=== PATIENT | female | born 1960 | race Caucasian/White ===

== ENCOUNTER 2018-07-05 19:46 | Emergency (ER) | payer BC ==
[2018-07-05 20:09] VITALS: BP 146/84
[2018-07-05] MEDS ORDERED: Tetan/Diph/Pertus SYR(Tdap)* 0.5 ML SYR(BOOSTRIX) use SYR IM ONE (20:09)
[2018-07-05] MEDS ORDERED: Cephalexin CAP* 500 MG PO ONE (20:10)
--- NOTE | 2018-07-05 20:10 | UC ---
Lower Extremity/Ankle HPI - HPI Summary HPI Summary: Patient accidentally stepped on a metal handle of a basket with her left foot. She describes the handle as a thin shiny piece of metal that caused a puncture wound to the bottom of her left foot. She gestures that it went in to a depth of approximately 1-2 cm. The handle did come out whole and she denies any foreign body sensation. She also denies any numbness tingling or weakness to the foot. This occurred just prior to arrival. Last tetanus shot is unknown. Patient washed the area after the incident. - History of Current Complaint Stated Complaint: L FOOT INJURY Time Seen by Provider: 07/05/18 20:01 Hx Obtained From: Patient Onset/Duration: Sudden Onset Aggravating Factor(s): Nothing Alleviating Factor(s): Nothing - Allergies/Home Medications Allergies/Adverse Reactions: Allergies Allergy/AdvReac Type Severity Reaction Status Date / Time MS Eggs or Egg-derived Allergy Hives Verified 05/23/16 16:56 Products [Eggs or Egg-derived Products] MS Penicillins [Penicillins] Allergy Hives Verified 05/23/16 16:56 Home Medications: Home Medications Pseudoephedrine TAB* [Sudafed TAB*] 30 mg PO Q6H PRN 07/05/18 [History Confirmed 07/05/18] PMH/Surg Hx/FS Hx/Imm Hx - Additional Past Medical History Additional PMH: allergies - Surgical History Surgical History: Yes Surgery Procedure, Year, and Place: 25# OVARIAN CYST REMOVED AT AGE 19. APPY. FALLOPIAN TUBE "CLEANED" - Family History Known Family History: Positive: Hypertension - Social History Occupation: Works From/At Home - [employer] Lives: With Family Alcohol Use: None Substance Use Type: None Smoking Status (MU): Never Smoked Tobacco - Immunization History Hx Tetanus, Diphtheria Vaccination: No Vaccination Up to Date: Yes Review of Systems Constitutional: Negative Skin: Other - PW L foot Eyes: Negative ENT: Negative Respiratory: Negative Cardiovascular: Negative Gastrointestinal: Negative Genitourinary: Negative Motor: Negative Neurovascular: Negative Musculoskeletal: Negative Neurological: Negative Psychological: Negative Is Patient Immunocompromised?: No All Other Systems Reviewed And Are Negative: Yes Physical Exam Triage Information Reviewed: Yes Appearance: Well-Appearing Vital Signs Reviewed: Yes Eyes: Positive: Conjunctiva Clear ENT: Positive: Normal ENT inspection Neck: Positive: Supple, Nontender, No Lymphadenopathy Respiratory: Positive: Lungs clear, Normal breath sounds Cardiovascular: Positive: RRR, No Murmur Abdomen Description: Positive: Nontender, No Organomegaly, Soft Bowel Sounds: Positive: Present Musculoskeletal: Positive: Other: - PW arch L foot with slight swelling. No red or streakes. Foot has full s/v/m function. Neurological: Positive: Alert Psychological: Positive: Age Appropriate Behavior Skin Exam: Normal Lower Extremity Course/Dx - Course Course Of Treatment: no concern for fx or FB. - Differential Dx/Diagnosis Provider Diagnoses: PW L foot Discharge - Sign-Out/Discharge Documenting (check all that apply): Patient Departure All imaging exams completed and their final reports reviewed: No Studies - Discharge Plan Condition: Stable Disposition: HOME Prescriptions: Cephalexin CAP* [Keflex CAP*] 500 mg PO TID 7 Days #21 cap Patient Education Materials: Puncture Wound (ED) Referrals: ALEXANDRA Read [[facility], [facility]] - 5 Days - Billing Disposition and Condition Condition: STABLE Disposition: Home
== END 2018-07-05 20:55 | disposition home or self-care (01) ==
LOC: UCCORT 19:46
DX: S91.332A Puncture wound without foreign body, left foot, initial encounter (principal); Z88.0 Allergy status to penicillin; Z91.018 Allergy to other foods; W45.8XXA Other foreign body or object entering through skin, initial encounter; Y92.9 Unspecified place or not applicable
CPT/HCPCS: 90471; 90715; 99213; A9270-GY; G0463

== ENCOUNTER 2019-09-23 09:16 | Emergency (ER) | payer BC ==
[2019-09-23 10:54] VITALS: BP 146/105
--- NOTE | 2019-09-23 11:06 | UC ---
Dental HPI - HPI Summary HPI Summary: Pt presents with c/o sudden onset of left lower jaw selling and pain. Pt has poor dentition and has not seen dentist in "awhile" and denies any recent dental work or trauma. - History of Current Complaint Chief Complaint: UCDentalProblem Stated Complaint: DENTAL COMPLAINT Time Seen by Provider: 09/23/19 11:00 Hx Obtained From: Patient ?: No Onset/Duration: Sudden Onset, Lasting Hours, Still Present Severity: Moderate Pain Intensity: 8 Aggravating Factor(s): Heat, Cold, Chewing Alleviating Factor(s): Nothing Related History: Swelling - Allergies/Home Medications Allergies/Adverse Reactions: Allergies Allergy/AdvReac Type Severity Reaction Status Date / Time egg Allergy Hives Verified 09/23/19 10:51 Penicillins Allergy Hives Verified 09/23/19 10:51 Home Medications: Home Medications Acetaminophen TAB* [Tylenol TAB*] 1,000 mg PO Q4H PRN 09/23/19 [History Confirmed 09/23/19] PMH/Surg Hx/FS Hx/Imm Hx Previously Healthy: Yes - Surgical History Surgical History: Yes Surgery Procedure, Year, and Place: 25# OVARIAN CYST REMOVED AT AGE 19. APPY. FALLOPIAN TUBE "CLEANED" - Family History Known Family History: Positive: Hypertension - Social History Occupation: Employed Full-time Lives: With Family Alcohol Use: None Substance Use Type: None Smoking Status (MU): Never Smoked Tobacco Have You Smoked in the Last Year: No - Immunization History Most Recent Tetanus Shot: 10/30/10 Hx Tetanus, Diphtheria Vaccination: No Vaccination Up to Date: Yes Review of Systems All Other Systems Reviewed And Are Negative: Yes Constitutional: Positive: Negative Skin: Positive: Negative Eyes: Positive: Negative ENT: Positive: Dental Pain Respiratory: Positive: Negative Cardiovascular: Positive: Negative Gastrointestinal: Positive: Negative Genitourinary: Positive: Negative Motor: Positive: Negative Neurovascular: Positive: Negative Musculoskeletal: Positive: Negative Neurological: Positive: Negative Psychological: Positive: Negative Is Patient Immunocompromised?: No Physical Exam Triage Information Reviewed: Yes Appearance: Pain Distress Vital Signs: Initial Vital Signs Temp 97.8 F 09/23/19 10:49 Pulse 98 09/23/19 10:49 Resp 16 09/23/19 10:49 BP 146/105 09/23/19 10:49 Pulse Ox 98 09/23/19 10:49 Vital Signs Reviewed: Yes Eye Exam: Normal ENT Exam: Normal Dental: Positive: Gross Decay/Caries @, Abscess @ - left lower jaw Neck exam: Normal Respiratory Exam: Normal Musculoskeletal Exam: Normal Neurological Exam: Normal Psychological Exam: Normal Skin Exam: Normal Dental Complaint Course/Dx - Differential Dx/Diagnosis Differential Diagnosis/Dx: Dental Abscess, Dental Caries Provider Diagnosis: Poor dentition, Dental abscess Discharge ED - Sign-Out/Discharge Documenting (check all that apply): Patient Departure All imaging exams completed and their final reports reviewed: No Studies - Discharge Plan Condition: Stable Disposition: HOME Prescriptions: Clindamycin Cap(NF) [Clindamycin Cap 300 mg Cap(NF)] 300 mg PO Q6H #40 cap predniSONE TAB* [Deltasone 10 MG TAB*] 30 mg PO DAILY #12 tab traMADol TAB* [Ultram*] 50 mg PO BEDTIME PRN #4 tab MDD 50 mg PRN Reason: Pain - Mild Patient Education Materials: Dental Abscess (ED) Referrals: [facility] [Outside] - As Soon As Possible No Primary Care Phys,NOPCP [Primary Care Provider] - Additional Instructions: Please follow up with [facility] as soon as possible. Please establish care with a PCP as soon as possible. - Billing Disposition and Condition Condition: STABLE Disposition: Home
== END 2019-09-23 11:17 | disposition home or self-care (01) ==
LOC: UCCORT 09:16
DX: K04.7 Periapical abscess without sinus (principal); K00.7 Teething syndrome; Z88.0 Allergy status to penicillin; Z91.012 Allergy to eggs
CPT/HCPCS: 99212; G0463